=== PATIENT | female | born 1995 | race Caucasian/White ===

== ENCOUNTER 2017-01-10 12:06 | Emergency (ER) | payer MEDICAID, OTHER ==
[~2017-01-10] VITALS: Ht 172.7 cm; Wt 124.0 kg
[2017-01-10] MEDS ORDERED: PROPARACAINE HCL 0.5% 15 ML OPHTHALMIC SOLUTION OS ONE (13:45)
[2017-01-10 14:52] VITALS: BP 109/70
== END 2017-01-10 15:08 | disposition home or self-care (01) ==
LOC: EMS 12:10
DX: H57.12 Ocular pain, left eye (principal); R51 Headache; H53.8 Other visual disturbances
CPT/HCPCS: 99283